=== PATIENT | female | born 1950 | race Caucasian/White ===

== ENCOUNTER 2017-12-05 08:17 | Day surgery (SDC) | payer OTHER ==
[2017-11-27 14:23] VITALS: BMI 32.9
[2017-12-05] MEDS ORDERED: LIDOCAINE HCL 2% (20ML MULTI-DOSE VIAL) NR ONE (10:09)
[2017-12-05] MEDS ORDERED: MIDAZOLAM HCL 2 MG/2 ML SINGLE DOSE VIAL ONE (10:22)
[2017-12-05] MEDS ORDERED: ONDANSETRON 4 MG/2 ML VIAL ONE (10:32)
[2017-12-05 11:17] VITALS: TEMP 98
[2017-12-05 11:57] VITALS: BP 114/61; PULSE 70
--- NOTE | 2017-12-08 12:11 | OP ---
DATE OF OPERATION: 12/05/2017 PREOPERATIVE DIAGNOSIS: Right thumb trigger finger. POSTOPERATIVE DIAGNOSIS: Right thumb trigger finger. OPERATIVE PROCEDURE: Right thumb trigger finger release. ANESTHESIA: Local with sedation. COMPLICATIONS: None. ESTIMATED BLOOD LOSS: Minimal. INDICATION FOR PROCEDURE: The patient is a 66-year-old female with the above finding, indicated for operative treatment. Risks, benefits, and alternatives were discussed with the patient at length. Proper informed consent was obtained. Of note, she also had an index finger nail crush injury recently and the nail was almost falling off and bothering her, and she asked if I could remove the nail plate for her. I discussed the risks, benefits, and alternatives of this, and she desired to proceed. PROCEDURE: After proper identification of the patient, correct operative site, patient was taken to the operating room, placed supine on the table with all prominences well padded. Sedation was given by the anesthesiologist, local anesthesia achieved with 2% lidocaine. Right upper extremity was prepped and draped in the usual sterile fashion, a well-padded tourniquet placed after sterile prep. Esmarch bandage used to exsanguinate right upper extremity. Tourniquet was inflated to 250 mmHg. Transverse incision made over the A1 shayla of the thumb. This was skin with blunt and sharp dissection of subcutaneous tissues. A1 shayla was divided longitudinally and patient was asked to flex and extend her thumb and no further triggering was noted. The wound was irrigated with saline, repair with a 5-0 nylon suture. The nail plate of the index finger was nearly completely off, and I just elevated it a little bit and it was able to be easily removed and the finger was dressed with a sterile dressing. Patient was reversed from sedation, brought to the recovery room in stable condition. She tolerated the procedure well. AMERICA PELAEZ M.D. [id number]
== END 2017-12-05 11:45 | disposition home or self-care (01) ==
LOC: FASU 08:17
PROVIDERS: ATTEND Orthopaedic Surgery Hand Surgery
PROC: 0HDQXZZ Extraction of Finger Nail, External Approach (ICD-10-PCS; 2017-12-05)
PROC: 0LN70ZZ Release Right Hand Tendon, Open Approach (ICD-10-PCS; principal; 2017-12-05 10:39)
DX: M65.311 Trigger thumb, right thumb (principal); L60.8 Other nail disorders